=== PATIENT | female | born 1960 | race Caucasian/White ===

== ENCOUNTER 2016-10-02 04:28 | Emergency (ER) | payer SELFPAY ==
--- NOTE | 2016-10-02 06:20 | DIAGNOSTIC IMAGING REPORT ---
PROCEDURE: XR LUMBAR SPINE 2 OR 3 VIEWS INDICATION: LOWER EXTERMITY NUMBNESS TECHNIQUE: Three views. COMPARISON: None. FINDINGS: Normal alignment without fracture. Osteopenia. Mild degenerative changes and levoscoliosis. Mild atherosclerosis of the aorta. IMPRESSION: 1. Mild degenerative changes and levoscoliosis 2. Osteopenia
--- NOTE | 2016-10-02 09:16 | ED ORDER SUMMARY ---
..... Patient: SHEREE SANTAMARIA OrderSheet [facility] VisitID: [id number] [place] [address] 56y, F Registration Date/Time: 10/02/2016 ORDER SHEET Weight: 63.5 kg (stated) Allergies: No Known Drug Allergy GENERAL ORDERS: Lumbar Spine 2 or 3V Urgent (05:02 10/02/2016 Monie Sexton) (Ack 5:12 Davidna) (6:03 RCollier R.N.) CBC w Diff Urgent (05:02 10/02/2016 Monie Sexton) (Ack 5:13 Sevtlana) (5:27 DDavis R.N.) CMP Urgent (05:02 10/02/2016 Monie Sexton) (Ack 5:13 Davidna) (5:27 DDavis R.N.) UA-Culture if indicated Urgent (05:02 10/02/2016 Monie Sexton) (Ack 5:13 Svetlana) (5:27 DDavis R.N.) CPK Urgent (05:02 10/02/2016 Monie Sexton) (Ack 5:13 Davidna) (5:27 DDavis R.N.) Type & Cross (severe anemia) (compatability) Urgent (05:35 10/02/2016 Monie Sexton) (5:36 DDavis R.N.) EKG - ER Stat (05:36 10/02/2016 Monie Sexton) (Ack 5:47 Donekimana) (5:47 CHategekimana) Troponin-I Urgent (05:51 10/02/2016 Monie Sexton) (Ack 6:00 Donekimana) (6:22 DDavis R.N.) Transfuse PRBCs (2 units) (07:07 10/02/2016 DDavis R.N. verbal order read back to Monie Sexton) (Ack 7:08 DDavis R.N.) (7:33 Maida R.N.) Order received at 0536 CBC wo Diff Urgent (15:37 10/02/2016 Maida R.NMars verbal order read back to Anders Sexton) (Ack 15:43 IJurca ER Tech1) (16:04 Maida R.N.) Troponin-I Urgent (21:13 10/02/2016 Anders Sexton) (Ack 21:26 CHagerty ER Safety Representative) (21:38 Kendra R.N.) Hgb/Hct Urgent (21:18 10/02/2016 EcoDomuserty ER Safety Representative verbal order read back to Monie Sexton) (Ack 21:26 CHagerty ER Safety Representative) (21:38 DDke R.N.) EKG - ER Repeat Stat (23:07 10/02/2016 Anders Sexton) (23:17 EcoDomuserty ER Safety Representative) MEDICATION ORDERS: Tylenol PO 1,000 mg (NOW) (07:44 10/02/2016 Maida Augustin.NMars verbal order read back to Monie Sexton) (7:45 Maida R.N.) given for inc in temp during blood products IV FLUIDS: Toradol IV 30 mg (NOW) (05:02 10/02/2016 Monie Sexton) (5:30 DDavis R.N.) IV Saline Lock (05:02 10/02/2016 Monie Sexton) (5:30 DDarlettes R.N.) Protonix IVP 80mg 80 mg (Mix in NS 20ml over 4min) (05:36 10/02/2016 Monie Sexton) (5:49 DDarlettes R.N.) Morphine IV 4 mg (HIGH ALERT MEDICATION, NOW) (06:08 10/02/2016 Monei Sexton) (6:23 DDarlettes R.N.) Dilaudid IV 1 mg (HIGH ALERT MEDICATION, NOW) (06:29 10/02/2016 Monie Sexton) (6:37 Lucass R.N.) Dilaudid IV 1 mg (HIGH ALERT MEDICATION, NOW) (15:37 10/02/2016 Maida R.NMars verbal order read back to Monie Sexton) (16:04 Maida R.N.) per Dr Ashwini SERRANO Protonix IVP 80mg 80 mg (Mix in NS 20ml over 4min) (21:57 10/02/2016 Anders Sexton) (Ack 23:01 CBxander R.N.) (23:07 CBxander R.N.) Dilaudid IV 1 mg (NOW) (23:36 10/02/2016 Annette SERRANO) (23:40 Samantha R.N.) (Cancelled: Other0:15 Annette SERRANO) Dilaudid IV 0.5 mg (NOW) (00:15 10/03/2016 Annette SERRANO) (0:24 Samantha R.N.) ORDER SHEET NOTES: [Electronically signed by Yuniel Ward R.N. (01:04 10/03/2016)] [Electronically signed by Rosalio Douglass Dr. (08:35 10/04/2016)] [Electronically locked/signed by Yuniel Ward R.N. (01:04 10/03/2016)]
--- NOTE | 2016-10-02 09:16 | ED CLINICAL REPORT ---
Clinical Report - Physicians/Mid Levels [facility] [address] [place] [address] 10/02/2016 4:32 [facility]: [id number] Time Seen: 04:41; initial patient contact. Arrived- By private vehicle. Historian- patient. HISTORY OF PRESENT ILLNESS Chief Complaint: Injury to right and left leg. The injury happened about 3 years ago. Injury secondary to other mechansim (unknown). (unknown). Patient is experiencing moderate pain. Patient denies injury to the head or neck. REVIEW OF SYSTEMS The patient complains of pain on weight bearing. She has had numbness. No swelling, skin laceration, chest pain, abdominal pain or back pain. No head injury. She has had calf pain. Denies urinary incontinence or urinary retention. All systems otherwise negative, except as recorded above. PAST HISTORY Negative. Problems: no known problems. Medications: Aspirin Oral. SOCIAL HISTORY Current every day smoker. Occasional alcohol use. History of drug use: marijuana. ADDITIONAL NOTES The nursing notes have been reviewed. PHYSICAL EXAM Vital Signs: 10/02/2016 04:46 BP: 160/60. HR: 115. RR: 24. O2 saturation: 99%. Temp: 98.3 F. Pain level now: 10/10. Have been reviewed. Hypertensive. Tachycardic. Tachypneic. Temperature normal. Oxygen saturation normal. Appearance: Alert. Oriented X3. No acute distress. Eyes: Pale conjunctivae. ENT: Pharynx normal. CVS: Tachycardia. Absent right and left posterior tibial pulse and right and left dorsalis pedis pulse. Heart sounds normal. (LONNIE right 0.28, LONNIE left 0.47). Respiratory: No respiratory distress. Breath sounds normal. Abdomen: Soft and nontender. Bowel sounds normal. No mass. Back: Normal inspection. No tenderness. ROM normal. : Normal external exam. Rectal: Strongly heme-positive stool; blood present in the stool; stools are dark colored; hemoccult quality improvement coordinator check passed. (POC test reference range: negative). Dark black stool. Rectal exam nontender. (Female JUAN M Krishnan present for exam). Skin: Moderate pallor. Neuro, Vascular and Tendons: Right dorsalis pedis and right posterior tibial pulse deficit. Left dorsalis pedis and left posterior tibial pulse deficit. Decreased light touch sensation right lower extremity and left lower extremity. No weakness. Gait: Gait not tested due to pain. Neuro: Oriented X 3. No motor deficit. LABS, X-RAYS, AND EKG EKG: EKG time: (0543). Tachycardia (ventricular rate 106). Sinus tachycardia. Normal P waves. Normal KAREN. Normal QRS complex. Normal axis. Moderate ST depression in lead V4, V5 and V6- consistent with ischemia. Prolonged QTc (486). Prior EKG unavailable. The study has been interpreted contemporaneously by me. The study has been independently viewed by me. The EKG appears to be a good tracing. I agree with and confirm the computer reading of the EKG. Interpretation time: 05. LS-Spine X-rays: (Mild DJD and levoscoliosis, otherwise nl.). Views: AP and lateral. Technique: good. The X-rays were independently viewed by me and interpreted contemporaneously by me. Prior films were not available for comparison. Laboratory Tests: UA-Culture if indicated: (TASHIA: 10/02/2016 05:32) ( MsgRcvd 10/02/2016 06:11) Final results Test Result Flag Units (Reference) URINE COLOR YELLOW URINE APPEARANCE CLEAR URINE GLUCOSE NEGATIVE (NEGATIVE) URINE BILIRUBIN NEGATIVE (NEGATIVE) URINE KETONE NEGATIVE (NEGATIVE) URINE SPECIFIC GRAVITY 1.025 (1.010-1.030) URINE PH 6.0 (5.0-8.0) URINE PROTEIN NEGATIVE (NEGATIVE) URINE UROBILINOGEN 0.2 EU/dL (0.2-1.0) URINE NITRITE NEGATIVE (NEGATIVE) URINE BLOOD NEGATIVE (NEGATIVE) URINE LEUK ESTERASE NEGATIVE (NEGATIVE) URINE RBC 0-1 rbc/hpf (0-1) URINE WBC 0-1 wbc/hpf (0-1) URINE EPITHELIAL CELLS 0-1 EPI/hpf (0-5) URINE BACTERIA MODERATE (2+ TO 3+) (NONE SEEN) URINE COMMENT CULTURE INDICATED MANY YEASTURINE CULTURES ARE SET-UP BASED ON THE FOLLOWING CRITERIA:POSITIVE NITRITEPOSITIVE LEUKOCYTE ESTERASEGREATER THAN 10 WHITE BLOOD CELLSMODERATE (2+) OR GREATER BACTERIA CBC w Diff: (TASHIA: 10/02/2016 05:08) ( [facility] [place] 10/02/2016 05:21) Final results Test Result Flag Units (Reference) WHITE BLOOD COUNT 14.2 H K/uL (4.5-11.5) RED BLOOD COUNT 2.41 L M/uL (4.00-5.20) HEMOGLOBIN 4.6 *L gm/dL (12.0-16.0) CRITICAL RESULTS CALLEDCalled to JULIEN LOPEZ RN 10/02/16 0519Were 2 patient identifiers used? YWas the result read back? Y HEMATOCRIT 15.9 *L % (36.0-46.0) CRITICAL RESULTS CALLEDCalled to JULIEN LOPEZ RN 10/02/16 0520Were 2 patient identifiers used? YWas the result read back? Y MEAN CELL VOLUME 66 L fL (80-100) MEAN CORPUSCULAR HGB 19 L pg (26-34) MEAN CORPUSCULAR HGB CONC 29 L g/dL (31-37) RED CELL DISTRIBUTION WIDTH 20.9 H % (11.6-14.8) PLATELET COUNT 238 K/uL (150-400) NEUTROPHIL % 82.8 H % (50-75) LYMPH % 11.7 L % (25-40) MONO % 4.9 % (3-14) EOSINOPHIL % 0.2 % (0-4) BASOPHIL % 0.4 % (0-2) CMP: (TASHIA: 10/02/2016 05:08) ( [facility] [place] 10/02/2016 05:33) Final results Test Result Flag Units (Reference) GLUCOSE 104 mg/dL (70-110) BUN 15 mg/dL (7-18) CREATININE 0.8 mg/dL (0.6-1.3) Estimated GFR >60 mL/min Estimated GFR- >60 mL/min Note: Persistent reduction over 3 months in eGFR<60 mL/min/1.73 m2 defines CKD. Patients with eGFR values>=60 mL/min/1.73 m2 may also have CKD if evidence ofpersistent proteinuria. Additional information may be foundat [email or web address]. SODIUM 140 mmol/L (136-145) POTASSIUM 3.7 mmol/L (3.5-5.1) CHLORIDE 106 mmol/L (98-107) CARBON DIOXIDE 20 L mmol/L (21-32) CALCIUM 7.5 L mg/dL (8.5-10.1) TOTAL PROTEIN 6.2 L g/dL (6.4-8.2) ALBUMIN 3.1 L g/dL (3.3-5.0) BILIRUBIN, TOTAL 0.2 mg/dL (0.0-1.0) ALKALINE PHOSPHATASE 113 U/L (46-116) AST (SGOT) 21 U/L (15-37) ALT (SGPT) 23 U/L (12-78) CPK 84 U/L (24-260) Type & Cross: (TASHIA: 10/02/2016 05:08) ( MsgRcvd 10/02/2016 06:05) IP Test Result Flag Units (Reference) LEUKOREDUCED PACKED CELLS [id number] OP PC ISSUED 10/02/16602 [id number] OP PC XM COMPATIBLE PATIENT BLOOD TYPE O Positive Above is a corrected result. Previously reported on ( MsgRcvd 10/02/2016 05:56) as: PATIENT BLOOD TYPE O Positive ANTIBODY SCREEN NEGATIVE Above is a corrected result. Previously reported on ( MsgRcvd 10/02/2016 05:56) as: ANTIBODY SCREEN NEGATIVE . PROGRESS AND PROCEDURES Critical care performed (85 minutes). Time includes: direct patient care, patient reassessment, coordination of patient care, interpretation of data (laboratory data and pulse oximetry), review of patient's medical records, medical consultation, family consultation regarding treatment decisions and documentation of patient care. The patient required critical care due to the acute impairment of vital organ systems (cardiovascular and hematologic) and a high probability of life threatening deterioration. Multiple emergent interventions were required to prevent life threatening deterioration. Discussed case with on-call health care provider, (Dr. Antonino MOODY at [facility], agreed on consulting for scope, deferred admit to hospitalist call [id number]). Discussed case with hospitalist, (call returned 09:10 Dr. Powers Hospitalist at [facility], will accept pt.). Consult obtained from cardiology. call returned 07:20 Dr. Muñiz at [facility], deferred to [address] [place] [address] where there is cardiology and vascular. Disposition: Benefits, risks and alternatives to transfer explained to patient. Transferred to [facility]. Condition: stable. CLINICAL IMPRESSION Occult and minor GI bleed with melena. 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 Abnormal EKG: depressed ST segments. Severe chronic iron deficiency anemia from chronic blood loss. (Electronically signed by Rosalio Douglass Dr. 10/04/2016 8:35) Addenda for SHEREE SANTMAARIA VisitID: [id number] Date: 10/02/2016 10/02/2016 22:48 Addendum placed in patient chart. I was the physician on after the patient's disposition was decided. Patient with GI bleed, indeterminate trop, anemia, and arterial insufficiency to the lower extremities. Patient 's was to be transfered to [facility]. From the notes, the doctor had spoken to cardilogy, GI, and hospitalist. During patient's stay here in the ED, patient was noted to be resting in bed and in no acute distress. Multiple calls were placed to [facility]. Were informed that we were waiting for a bed. Prior to my shift ending, patient was noted to have no bed placement. I have tried calling personally. No improved bed status. Did try to speak to the ED for possible ED to ED transfer which was uneventful. Understand the ED's point of view about bed status and no point in transfering if there are no beds. Did speak to [facility] however the production generalist doc there felt the patient required an ICU level of bed and that was not available. [facility] did not have beds either. We also discussed admit our hospital but with the indetermanent trop, and no cath ability, patient could not be managed here. Because the patient was still in the ED. repeat meds given and trop drawn to trend. Patient with H/H that seemd to have stayed about the same after the H/H the followed her transfusion. Patient with increased troponin however. This new information was relayed to [facility]. We are still awaiting status on the possible bed. Time now is 10:48 pm (Electronically signed by Kavon Maradiaga Dr. - 10/02/2016 22:48) 10/02/2016 23:37 1 mg of dilaudid written for return of leg pain. (Electronically signed by Madi Medley MD - 10/02/2016 23:37)
--- NOTE | 2016-10-02 09:16 | ED ORDER SUMMARY ---
..... Patient: SHEREE SANTAMARIA OrderSheet [facility] VisitID: [id number] [place] [address] 56y, F Registration Date/Time: 10/02/2016 ORDER SHEET Weight: 63.5 kg (stated) Allergies: No Known Drug Allergy GENERAL ORDERS: Lumbar Spine 2 or 3V Urgent (05:02 10/02/2016 Monie Sexton) (Ack 5:12 Davidna) (6:03 RCollier R.N.) CBC w Diff Urgent (05:02 10/02/2016 Monie Sexton) (Ack 5:13 Svetlana) (5:27 DDavis R.N.) CMP Urgent (05:02 10/02/2016 Monie Sexton) (Ack 5:13 Davidna) (5:27 DDavis R.N.) UA-Culture if indicated Urgent (05:02 10/02/2016 Monie Sexton) (Ack 5:13 Svetlana) (5:27 DDavis R.N.) CPK Urgent (05:02 10/02/2016 Monie Sexton) (Ack 5:13 Davidna) (5:27 DDavis R.N.) Type & Cross (severe anemia) (compatability) Urgent (05:35 10/02/2016 Monie Sexton) (5:36 DDavis R.N.) EKG - ER Stat (05:36 10/02/2016 Moine Sexton) (Ack 5:47 Donekimana) (5:47 CHategekimana) Troponin-I Urgent (05:51 10/02/2016 Monie Sexton) (Ack 6:00 Donekimana) (6:22 DDavis R.N.) Transfuse PRBCs (2 units) (07:07 10/02/2016 DDavis R.N. verbal order read back to Monie Sexton) (Ack 7:08 DDavis R.N.) (7:33 Maida R.N.) Order received at 0536 CBC wo Diff Urgent (15:37 10/02/2016 Maida R.NMars verbal order read back to Anders Sexton) (Ack 15:43 IJurca ER Tech1) (16:04 Maida R.N.) Troponin-I Urgent (21:13 10/02/2016 Anders Sexton) (Ack 21:26 CHagerty ER Machine Clerical Verifier) (21:38 Kendra R.N.) Hgb/Hct Urgent (21:18 10/02/2016 Wizzgoerty ER Machine Clerical Verifier verbal order read back to Monie Sexton) (Ack 21:26 CHagerty ER Machine Clerical Verifier) (21:38 DDke R.N.) EKG - ER Repeat Stat (23:07 10/02/2016 Anders Sexton) (23:17 Wizzgoerty ER Machine Clerical Verifier) MEDICATION ORDERS: Tylenol PO 1,000 mg (NOW) (07:44 10/02/2016 Maida Augustin.NMars verbal order read back to Monie Setxon) (7:45 Maida R.N.) given for inc in temp during blood products IV FLUIDS: Toradol IV 30 mg (NOW) (05:02 10/02/2016 Monie Sexton) (5:30 DDavis R.N.) IV Saline Lock (05:02 10/02/2016 Monie Sexton) (5:30 DDarlettes R.N.) Protonix IVP 80mg 80 mg (Mix in NS 20ml over 4min) (05:36 10/02/2016 Monie Sexton) (5:49 DDarlettes R.N.) Morphine IV 4 mg (HIGH ALERT MEDICATION, NOW) (06:08 10/02/2016 Monie Sexton) (6:23 DDarlettes R.N.) Dilaudid IV 1 mg (HIGH ALERT MEDICATION, NOW) (06:29 10/02/2016 Monie Sexton) (6:37 Lucass R.N.) Dilaudid IV 1 mg (HIGH ALERT MEDICATION, NOW) (15:37 10/02/2016 Maida R.NMars verbal order read back to Monie Sexton) (16:04 Maida R.N.) per Dr Ashwini SERRANO Protonix IVP 80mg 80 mg (Mix in NS 20ml over 4min) (21:57 10/02/2016 Anders Sexton) (Ack 23:01 CBxander R.N.) (23:07 CBxander R.N.) Dilaudid IV 1 mg (NOW) (23:36 10/02/2016 Annette SERRANO) (23:40 Samantha R.N.) (Cancelled: Other0:15 Annette SERRANO) Dilaudid IV 0.5 mg (NOW) (00:15 10/03/2016 Annette SERRANO) (0:24 Samantha R.N.) ORDER SHEET NOTES: [Electronically signed by Yuniel Ward R.N. (01:04 10/03/2016)] [Electronically signed by Rosalio Douglass Dr. (08:35 10/04/2016)] [Electronically locked/signed by Yuniel Ward R.N. (01:04 10/03/2016)]
--- NOTE | 2016-10-02 09:16 | ED CLINICAL REPORT ---
Clinical Report - Physicians/Mid Levels [facility] [address] [place] [address] 10/02/2016 4:32 [id number] Time Seen: 04:41; initial patient contact. Arrived- By private vehicle. Historian- patient. HISTORY OF PRESENT ILLNESS Chief Complaint: Injury to right and left leg. The injury happened about 3 years ago. Injury secondary to other mechansim (unknown). (unknown). Patient is experiencing moderate pain. Patient denies injury to the head or neck. REVIEW OF SYSTEMS The patient complains of pain on weight bearing. She has had numbness. No swelling, skin laceration, chest pain, abdominal pain or back pain. No head injury. She has had calf pain. Denies urinary incontinence or urinary retention. All systems otherwise negative, except as recorded above. PAST HISTORY Negative. Problems: no known problems. Medications: Aspirin Oral. SOCIAL HISTORY Current every day smoker. Occasional alcohol use. History of drug use: marijuana. ADDITIONAL NOTES The nursing notes have been reviewed. PHYSICAL EXAM Vital Signs: 10/02/2016 04:46 BP: 160/60. HR: 115. RR: 24. O2 saturation: 99%. Temp: 98.3 F. Pain level now: 10/10. Have been reviewed. Hypertensive. Tachycardic. Tachypneic. Temperature normal. Oxygen saturation normal. Appearance: Alert. Oriented X3. No acute distress. Eyes: Pale conjunctivae. ENT: Pharynx normal. CVS: Tachycardia. Absent right and left posterior tibial pulse and right and left dorsalis pedis pulse. Heart sounds normal. (LONNIE right 0.28, LONNIE left 0.47). Respiratory: No respiratory distress. Breath sounds normal. Abdomen: Soft and nontender. Bowel sounds normal. No mass. Back: Normal inspection. No tenderness. ROM normal. : Normal external exam. Rectal: Strongly heme-positive stool; blood present in the stool; stools are dark colored; hemoccult senior quality control technician check passed. (POC test reference range: negative). Dark black stool. Rectal exam nontender. (Female JUAN M Krishnan present for exam). Skin: Moderate pallor. Neuro, Vascular and Tendons: Right dorsalis pedis and right posterior tibial pulse deficit. Left dorsalis pedis and left posterior tibial pulse deficit. Decreased light touch sensation right lower extremity and left lower extremity. No weakness. Gait: Gait not tested due to pain. Neuro: Oriented X 3. No motor deficit. LABS, X-RAYS, AND EKG EKG: EKG time: (0543). Tachycardia (ventricular rate 106). Sinus tachycardia. Normal P waves. Normal KAREN. Normal QRS complex. Normal axis. Moderate ST depression in lead V4, V5 and V6- consistent with ischemia. Prolonged QTc (486). Prior EKG unavailable. The study has been interpreted contemporaneously by me. The study has been independently viewed by me. The EKG appears to be a good tracing. I agree with and confirm the computer reading of the EKG. Interpretation time: 05. LS-Spine X-rays: (Mild DJD and levoscoliosis, otherwise nl.). Views: AP and lateral. Technique: good. The X-rays were independently viewed by me and interpreted contemporaneously by me. Prior films were not available for comparison. Laboratory Tests: UA-Culture if indicated: (TASHIA: 10/02/2016 05:32) ( MsgRcvd 10/02/2016 06:11) Final results Test Result Flag Units (Reference) URINE COLOR YELLOW URINE APPEARANCE CLEAR URINE GLUCOSE NEGATIVE (NEGATIVE) URINE BILIRUBIN NEGATIVE (NEGATIVE) URINE KETONE NEGATIVE (NEGATIVE) URINE SPECIFIC GRAVITY 1.025 (1.010-1.030) URINE PH 6.0 (5.0-8.0) URINE PROTEIN NEGATIVE (NEGATIVE) URINE UROBILINOGEN 0.2 EU/dL (0.2-1.0) URINE NITRITE NEGATIVE (NEGATIVE) URINE BLOOD NEGATIVE (NEGATIVE) URINE LEUK ESTERASE NEGATIVE (NEGATIVE) URINE RBC 0-1 rbc/hpf (0-1) URINE WBC 0-1 wbc/hpf (0-1) URINE EPITHELIAL CELLS 0-1 EPI/hpf (0-5) URINE BACTERIA MODERATE (2+ TO 3+) (NONE SEEN) URINE COMMENT CULTURE INDICATED MANY YEASTURINE CULTURES ARE SET-UP BASED ON THE FOLLOWING CRITERIA:POSITIVE NITRITEPOSITIVE LEUKOCYTE ESTERASEGREATER THAN 10 WHITE BLOOD CELLSMODERATE (2+) OR GREATER BACTERIA CBC w Diff: (TASHIA: 10/02/2016 05:08) ( [facility] 10/02/2016 05:21) Final results Test Result Flag Units (Reference) WHITE BLOOD COUNT 14.2 H K/uL (4.5-11.5) RED BLOOD COUNT 2.41 L M/uL (4.00-5.20) HEMOGLOBIN 4.6 *L gm/dL (12.0-16.0) CRITICAL RESULTS CALLEDCalled to JULIEN LOPEZ RN 10/02/16 0519Were 2 patient identifiers used? YWas the result read back? Y HEMATOCRIT 15.9 *L % (36.0-46.0) CRITICAL RESULTS CALLEDCalled to JULIEN LOPEZ RN 10/02/16 0520Were 2 patient identifiers used? YWas the result read back? Y MEAN CELL VOLUME 66 L fL (80-100) MEAN CORPUSCULAR HGB 19 L pg (26-34) MEAN CORPUSCULAR HGB CONC 29 L g/dL (31-37) RED CELL DISTRIBUTION WIDTH 20.9 H % (11.6-14.8) PLATELET COUNT 238 K/uL (150-400) NEUTROPHIL % 82.8 H % (50-75) LYMPH % 11.7 L % (25-40) MONO % 4.9 % (3-14) EOSINOPHIL % 0.2 % (0-4) BASOPHIL % 0.4 % (0-2) CMP: (TASHIA: 10/02/2016 05:08) ( [facility] 10/02/2016 05:33) Final results Test Result Flag Units (Reference) GLUCOSE 104 mg/dL (70-110) BUN 15 mg/dL (7-18) CREATININE 0.8 mg/dL (0.6-1.3) Estimated GFR >60 mL/min Estimated GFR- >60 mL/min Note: Persistent reduction over 3 months in eGFR<60 mL/min/1.73 m2 defines CKD. Patients with eGFR values>=60 mL/min/1.73 m2 may also have CKD if evidence ofpersistent proteinuria. Additional information may be foundat [email or web address]. SODIUM 140 mmol/L (136-145) POTASSIUM 3.7 mmol/L (3.5-5.1) CHLORIDE 106 mmol/L (98-107) CARBON DIOXIDE 20 L mmol/L (21-32) CALCIUM 7.5 L mg/dL (8.5-10.1) TOTAL PROTEIN 6.2 L g/dL (6.4-8.2) ALBUMIN 3.1 L g/dL (3.3-5.0) BILIRUBIN, TOTAL 0.2 mg/dL (0.0-1.0) ALKALINE PHOSPHATASE 113 U/L (46-116) AST (SGOT) 21 U/L (15-37) ALT (SGPT) 23 U/L (12-78) CPK 84 U/L (24-260) Type & Cross: (TASHIA: 10/02/2016 05:08) ( MsgRcvd 10/02/2016 06:05) IP Test Result Flag Units (Reference) LEUKOREDUCED PACKED CELLS [id number] OP PC ISSUED 10/02/16602 [id number] OP PC XM COMPATIBLE PATIENT BLOOD TYPE O Positive Above is a corrected result. Previously reported on ( MsgRcvd 10/02/2016 05:56) as: PATIENT BLOOD TYPE O Positive ANTIBODY SCREEN NEGATIVE Above is a corrected result. Previously reported on ( MsgRcvd 10/02/2016 05:56) as: ANTIBODY SCREEN NEGATIVE . PROGRESS AND PROCEDURES Critical care performed (85 minutes). Time includes: direct patient care, patient reassessment, coordination of patient care, interpretation of data (laboratory data and pulse oximetry), review of patient's medical records, medical consultation, family consultation regarding treatment decisions and documentation of patient care. The patient required critical care due to the acute impairment of vital organ systems (cardiovascular and hematologic) and a high probability of life threatening deterioration. Multiple emergent interventions were required to prevent life threatening deterioration. Discussed case with on-call health care provider, (Dr. Antonino MOODY at [facility], agreed on consulting for scope, deferred admit to hospitalist call [id number]). Discussed case with hospitalist, (call returned 09:10 Dr. Powers Hospitalist at [facility], will accept pt.). Consult obtained from cardiology. call returned 07:20 Dr. Muñiz at [facility], deferred to [address] [place] [address] where there is cardiology and vascular. Disposition: Benefits, risks and alternatives to transfer explained to patient. Transferred to [facility]. Condition: stable. CLINICAL IMPRESSION Occult and minor GI bleed with melena. 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 Abnormal EKG: depressed ST segments. Severe chronic iron deficiency anemia from chronic blood loss. (Electronically signed by Rosalio Douglass Dr. 10/04/2016 8:35) Addenda for SHEREE SANTAMARIA VisitID: [id number] Date: 10/02/2016 10/02/2016 22:48 Addendum placed in patient chart. I was the physician on after the patient's disposition was decided. Patient with GI bleed, indeterminate trop, anemia, and arterial insufficiency to the lower extremities. Patient 's was to be transfered to [facility]. From the notes, the doctor had spoken to [facility]ilogy, GI, and hospitalist. During patient's stay here in the ED, patient was noted to be resting in bed and in no acute distress. Multiple calls were placed to [facility]. Were informed that we were waiting for a bed. Prior to my shift ending, patient was noted to have no bed placement. I have tried calling personally. No improved bed status. Did try to speak to the ED for possible ED to ED transfer which was uneventful. Understand the ED's point of view about bed status and no point in transfering if there are no beds. Did speak to [facility] however the client application support engineer doc there felt the patient required an ICU level of bed and that was not available. [facility] did not have beds either. We also discussed admit our hospital but with the indetermanent trop, and no cath ability, patient could not be managed here. Because the patient was still in the ED. repeat meds given and trop drawn to trend. Patient with H/H that seemd to have stayed about the same after the H/H the followed her transfusion. Patient with increased troponin however. This new information was relayed to [facility]. We are still awaiting status on the possible bed. Time now is 10:48 pm (Electronically signed by Kavon Maradiaga Dr. - 10/02/2016 22:48) 10/02/2016 23:37 1 mg of dilaudid written for return of leg pain. (Electronically signed by Madi Medley MD - 10/02/2016 23:37)
--- NOTE | 2016-10-02 09:16 | ED NURSING NOTES ---
Clinical Report - Nurs[facility] [address] [place] [address] 10/02/2016 4:32 [id number] Triage time 04:47. Acuity: LEVEL 4. Chief Complaint: RIGHT LOWER EXTREMITY NUMBNESS. Location of symptoms- (weakness). LEFT LOWER EXTREMITY NUMBNESS. Location of symptoms- (weakness). Alert. JEREMI COMA SCORE: [place] Coma Scale: 15- eyes open spontaneously (4); best verbal response- oriented x 4 (5); best motor response- obeys commands (6). --04:53 Yuniel Ward R.N. 04:46 10/02/16. BP: 160/60. HR: 115. RR: 24. O2 saturation: 99%. Temp: 98.3 F. Pain level now: 02/24. --04:53 Yuniel Ward R.N. Weight: 63.5 kg stated. Height/Length: 63 inches Per Patient. BMI: 24.8. --04:47 Yuniel Ward R.N. Medications Aspirin Oral. --04:48 Yuniel Ward R.N. Allergies No Known Drug Allergy. --01:04 Yuniel Ward R.N. History Arrived by private vehicle. Historian: patient. Accompanied by family. This occurred (3 years ago). ( increased "Thursday"). SOCIAL HX: Heavy tobacco smoker (cigarette)- 1 pack per day. Occasional alcohol use. History of occasional drug use: marijuana. ( Denies SI/HI, states that she feels safe at home.). FALL RISK ASSESSMENT: Fall risk assessment completed. No fall risk identified. NUTRITIONAL RISK ASSESSMENT: The nutritional risk assessment revealed no deficiencies. FUNCTIONAL ASSESSMENT: Functional assessment: no impairments noted. LEARNING NEEDS ASSESSMENT: The learning needs assessment revealed no barriers. --04:53 Yuniel Ward R.N. PROBLEMS: no known problems. ADDITIONAL SURGERIES: Tubal Ligation. --04:48 Yuniel Ward R.N. Interventions ID band on patient. To treatment room. --04:53 Yuniel Ward R.N. PHYSICAL ASSESSMENT To room via wheelchair. GENERAL / NEURO / PSYCH: Oriented X 4. Alert. Appears in pain and anxious. Does not appear in distress. She has had intermittent weakness. She has had intermittent numbness. EXTREMITIES: No lower extremity edema. No limited ROM present or extremity erythema. No increased warmth on the extremities. SKIN: No extremity wound. Skin intact. Skin is dry. Skin is cool. --04:55 Yuniel Ward R.N. CVS: Cardiac murmur(s) present (murmur heard over jugular areas bilaterally). ( unable to manually palpate pedal pulses. lung sounds clear). --04:59 Yuniel Ward R.N. GENERAL / NEURO / PSYCH: ( Patient states that the diluadid was helpful for her leg pain). Does not appear anxious. --07:01 Yuniel Ward R.N. GENERAL / NEURO / PSYCH: ( Patient appears relaxed). --07:01 Yuniel Ward R.N. 07:05 10/02/16. BP: 155/60. HR: 96. O2 saturation: 98% on nasal cannula at 2 liters/minute. --07:05 Yuniel Ward R.N. GENERAL / NEURO / PSYCH: Oriented X 4. ( Patient resting in bed). Does not appear in pain or distress or anxious. SKIN: Skin intact. Skin is warm and dry. --00:29 Yuniel Ward R.N. NURSING PROGRESS NOTES Patient gowned. Reassurance given. Two patient identifiers checked. Call light placed in reach. Side rails up x 1. Bed placed in lowest position. Brakes of bed on. Patient ready for evaluation- chart flagged. Patient waiting for evaluation. --04:55 Yuniel Ward R.N. ( Unable to palpate or doppler pedal pulses, dr. douglass notified.). --05:27 Yuniel Ward R.N. 05:20 10/02/2016 Site #1 started via IV in the right antecubital space with an 20g angiocath. Blood drawn: rainbow set. Labeled in the presence of the patient and sent to the lab. Saline lock flushed with 10 mL saline. --05:30 Yuniel Ward R.N. 05:25 10/02/2016 Toradol IVP 30 mg given over 1 minute(s) via site #1. Allergies verified and confirmed 5 rights. IV patency established. IV site checked: no pain, redness, or swelling. IV flushed thoroughly pre- and post-medication administration. --05:30 Yuniel Ward R.N. ( Dr. Douglass with patient.). --05:32 uYniel Ward R.N. Hemoccult test positive. inventory control coordinator check passed. (POC test reference range: negative). --05:32 Yuniel Ward R.N. ( Critical values of Hgb 4.6 and Hct 15.[address] douglass at time lab called, received and reported by JUAN M Brar.). --05:34 Yuniel Ward R.N. ( lean manager performing EKG). --05:37 Yuniel Ward R.N. EKG time: (0542 AM). EKG was ordered, performed by a tech and shown to the ED physician. --05:48 Junie Corado 05:43 10/02/2016 PROTONIX (Pantoprazole Sodium) IVP 80 mg given over 4 minute(s) via site #1. Allergies verified and confirmed 5 rights. IV patency established. IV site checked: no pain, redness, or swelling. IV flushed thoroughly pre- and post-medication administration. IVP given by RN (in 20ml NS). --05:49 Yuniel Ward R.N. Patient transported to radiology by stretcher with tech. --05:55 Daniella Taylor R.N. ( Patient taken to radiology with Rolan home appliance technician). --05:57 Yuniel Ward R.N. Patient returned from radiology by stretcher with tech. --06:04 Daniella Taylor R.N. ( Pt c/o increased pain in legs. EDMD notified.). --06:04 Daniella Taylor R.N. 06:13 10/02/2016 Morphine IVP 4 mg given over 2 minute(s) via site #1. Allergies verified, confirmed 5 rights and sedative warning given to the patient and patient's family. IV patency established. IV site checked: no pain, redness, or swelling. IV flushed thoroughly pre- and post-medication administration. IVP given by RN. --06:23 Yuniel Ward R.N. BLOOD PRODUCT STARTED: consent signed, ID band checked and blood product verified to order and patient's blood band by 2 staff members. #1 unit PRBC via IV pump (75 mL/hr). See transfusion record. ( Blood started at 0615). --06:24 Yuniel Ward R.N. 06:30 10/02/16. BP: 187/57. HR: 121. O2 saturation: 100% on nasal cannula at 2 liters/minute. Temp: 98.6 F (oral). Pain level now: 02/24. --06:35 Yuniel Ward R.N. 06:33 10/02/2016 Dilaudid (HYDROmorphone HCl PF) IVP 1 mg given over 2 minute(s) via site #1. Allergies verified, confirmed 5 rights and sedative warning given to the patient and patient's family. IV patency established. IV site checked: no pain, redness, or swelling. IV flushed thoroughly pre- and post-medication administration. IVP given by RN. --06:37 Yuniel Ward R.N. <<STRICKEN ENTRY-- ( rate of blood increased to 200 ml/hr). --06:47 Yuniel Ward R.N. --END STRIKE>> Correction --06:47 Yuniel Ward R.N. ( 0630: rate of blood increased to 200 ml/hr). --06:48 Yuniel Ward R.N. 06:49 10/02/16. BP: 178/47 taken on the right arm. HR: 102. O2 saturation: 100% on nasal cannula at 2 liters/minute. Pain level now: 10/25. --06:50 Yuniel Ward R.N. 06:50 10/02/16. BP: 174/50 taken on the left arm. HR: 101. --06:50 Yuniel Ward R.N. <<STRICKEN ENTRY-- 06:50 10/02/16. BP: 51/35. Additional comments: left leg. --06:51 Yuniel Ward R.N. --END STRIKE>> Wrong Value. --06:51 Yuniel Ward R.N. 06:51 10/02/16. BP: 83/54. Additional comments: left leg. --06:51 Yuniel Ward R.N. 06:51 10/02/16. BP: 51/35. Additional comments: right leg. --06:51 Yuniel Ward R.N. <<STRICKEN ENTRY-- 06:54 10/02/16. BP: 167/100. HR: 102. RR: 18. O2 saturation: 98%. Pain level now: 09/24. --06:56 Sheriff Mccormick R.N. --END STRIKE>> Charted on wrong patient. --07:00 Sheriff Mccormick R.N. Overall patient status is the same- she states feels better. ( CT done.). --06:56 Sheriff Mccormick R.N. ( report given to JUAN M Shen). --07:06 Yuniel Ward R.N. ( assumed care of pt, doppler used to obtain pedal pulses, MD notified. pt sleeping, awakens to touch, spouse at bedside, pts color pink, oral mucosa dry, has NC 2L in place, waiting to hear of accepting facility for transport out. pt placed on vibration technician). --07:23 Hermelinda Darden R.N. 07:20 10/02/16. BP: 150/49. HR: 94. RR: 19. O2 saturation: 99% on nasal cannula at 2 liters/minute. Temp: 99.2 F. ED physician notified. --07:23 Hermelinda Darden R.N. Patient identifiers checked. Call light placed in reach. Side rails up x 2. Bed placed in lowest position. Brakes of bed on. ( blood up infusing on iv pump at 200ml/hr). --07:24 Hermelinda Darden R.N. Reassessment after medication administered (temperature elevated during blood transfusion, notified with orders for a gram of tylenol). --07:35 Hermelinda Darden R.N. 07:39 10/02/2016 Tylenol (Acetaminophen) PO 1000 mg given. Allergies verified and confirmed 5 rights. --07:45 Hermelinda Darden R.N. 07:58 10/02/16. ( pt moved to room 13 in direct view of nurses station. pt sats now 100% on 3 L, pt a/o x 3, denies pain, in SR on monitor, 1st unit of blood products complete, facility tech to lab to get 2nd unit.). --08:10 Hermelinda Darden R.N. 08:10 10/02/16. BP: 148/56. HR: 81. RR: 15. O2 saturation: 100% on nasal cannula at 3 liters/minute. Temp: 98.4 F. Pain level now: 0. --08:11 Hermelinda Darden R.N. 08:44 10/02/16. BP: 159/59. HR: 84. RR: 16. O2 saturation: 100%. Temp: 98.4 F. Pain level now: 0. --08:46 Hermelinda Darden R.N. ( 2nd unit of blood up infusing on iv pump, started at 75ml/hr for first 15 minutes, pt in SR on monitor, resting quietly). --08:46 Hermelinda Darden R.N. 08:55 10/02/16. BP: 149/50. HR: 85. RR: 15. O2 saturation: 100% on nasal cannula at 3 liters/minute. Temp: 98.5 F. Pain level now: 0. --08:56 Hermelinda Darden R.N. ( 15 minute blood check, rate increased to 200ml/hr). --08:56 Hermelinda Darden R.N. ( 2nd unit of blood infusing as ordered on ivp- waiting call back from [facility] for transfer.). --09:48 Hermelinda Darden R.N. 09:55 10/02/16. BP: 153/56 (regular adult cuff) taken on the left arm, via an automated monitor, while lying. RN notified. HR: 81. RR: 10 (regular, slow and deep). O2 saturation: 100% on nasal cannula at 3 liters/minute. Temp: 98.7 F. Pain level now: 0/10. Additional comments: 1 hour Blood check . --09:57 Kelley Seymour 10:30 10/02/16. BP: 161/69. HR: 84. RR: 15. O2 saturation: 100% at 3 liters/minute. Temp: 98.2 F. Pain level now: 0/10. --10:41 Hermelinda Darden R.N. ( 2nd unit of blood complete, v/s recorded, no s/sx of reaction). --10:41 Hermelinda Darden R.N. 08:41. BLOOD PRODUCT DISCONTINUED: #1 unit. No adverse reaction noted. See transfusion record. --11:16 Hermelinda Darden R.N. 08:41. Time-out completed immediately before the procedure per protocol: verified identity of patient (name, birthdate and medical record number), procedure, availability of relevant documentation, diagnostic and imaging studies and blood products, implants, devices and/or equipment, safety precautions based on patient history or medication use and consent was obtained and reviewed; verification done by care team (nurse). (2551) BLOOD PRODUCT STARTED: consent signed, ID band checked and blood product verified to order and patient's blood band by 2 staff members. #2 unit PRBC via IV pump (started at 75ml/hr). See transfusion record. --11:18 Hermelinda Darden R.N. 10:41. BLOOD PRODUCT DISCONTINUED: #2 unit PRBC. No adverse reaction noted. See transfusion record. --11:18 Hermelinda Darden R.N. Patient waiting for transportation and admit bed and (continuing to wait on bed at [facility] where pt was accepted. LORENA Gill called and at this time they have no available beds but are expecting dispos today.). --12:08 Hermelinda Darden R.N. 12:08 10/02/16. BP: 148/70. HR: 72. RR: 15. O2 saturation: 100% on nasal cannula at 3 liters/minute. Pain level now: 07/25. --12:09 Hermelinda Darden R.N. Cardiac rhythm: normal sinus rhythm. Patient identifiers checked. Call light placed in reach. Side rails up x 2. Bed placed in lowest position. Brakes of bed on. --12:09 Hermelinda Darden R.N. Reassessment after (no reaction from blood products. pt in poc, daughter in and out of room). She has had no adverse reaction. ( pt and family updated on delay of transport reason). --12:10 Hermelinda Darden R.N. 14:17 10/02/16. BP: 141/53. HR: 78. RR: 15. O2 saturation: 100%. Pain level now: . --14:20 Hermelinda Darden R.N. ( pt in poc, family in and out, we cont to wait for return from [facility] for transfer. pt and family aware of wait. pt in SR, denies pain at this time, pt a/o x 3, moves about on [facility] independently, call light in hand,). --14:20 Hermelinda Darden R.N. ( plan is now to wait until 1600 and then call [facility] back if room is not available will send to [facility] ED). --15:19 Hermelinda Darden R.N. ( pt c/o leg pain returning, Dr Maradiaga took over for Dr Douglass, vo per Dr Maradiaga to repeat dilaudid 1mg iv). --15:39 Hermelinda Darden R.N. Cardiac rhythm: (SR). Patient identifiers checked. Call light placed in reach. Side rails up x 1. Bed placed in lowest position. Brakes of bed on. ( pts family brought her dinner, pt ate hamburger, water given to pt, up to bsc with sba to void.). --15:40 Hermelinda Daredn R.N. 15:39 10/02/16. BP: 138/50. HR: 82. RR: 17. O2 saturation: 100% on nasal cannula at 3 liters/minute. Pain level now: 09/24. --15:40 Hermelinda Darden R.N. 15:56 10/02/16. Patient ID band checked for patient name and birthdate. Blood samples drawn from the right antecubital space with Vacutainer 22g by nurse: don cameron. --17:31 Hermelinda Darden R.N. 15:59 10/02/2016 Dilaudid (HYDROmorphone HCl PF) IVP 1 mg given. via site #1. Allergies verified, confirmed 5 rights and sedative warning given to the patient. IV patency established. IV site checked: no pain, redness, or swelling. IV flushed thoroughly pre- and post-medication administration. IVP given by RN. --16:04 Hermelinda Darden R.N. ( [facility], they still have no bed, house sup at [facility] to call us when available, Dr Maradiaga notified.). --17:40 Hermelinda Darden R.N. 17:40 10/02/16. BP: 136/48. HR: 77. O2 saturation: 100%. --17:40 Hermelinda Darden R.N. Patient identifiers checked. Call light placed in reach. Side rails up x 2. Bed placed in lowest position. Brakes of bed on. --17:41 Hermelinda Darden R.N. ( family updated on H/H results and that we cont to wait on [facility] for transfer. pt sleeping, equal rise/fall of chest). --18:16 Hermelinda Darden R.N. ( care released, family home, pt sleeping, equal rise/fall of chest). --19:02 Hermelinda Darden R.N. 19:02 10/02/16. BP: 147/48. HR: 80. RR: 15. O2 saturation: 98%. --19:03 Hermelinda Darden R.N. Cardiac rhythm: (SR). Patient identifiers checked. Call light placed in reach. Side rails up x 1. Bed placed in lowest position. Brakes of bed on. --19:03 Hermelinda Darden R.N. ( [facility] CALLED AGAIN, STILL NO ETA, "BED SITUATION ABYSMAL"). --19:57 Chuy Morley, J[facility] Health Information Provider ( Blood collected from the patient's IV and sent to lab, labeled in presence of patient). --21:39 Yuniel Ward R.N. Cardiac rhythm: normal sinus rhythm. Oxygen administered. Neuro-vascular extremity check. Reassurance given. ( Pt still feels a bit SOB, denies CP, dizziness, labs drawn again to recheck levels, still awaiting on [facility] for bed placement. Drinking fluids and tolerating well. Will monitor). GENERAL / NEURO / PSYCH: Denies numbness. Denies pain. GI / : Denies nausea. Denies vomiting. Patient identifiers checked. Call light placed in reach. --21:43 Priti Jacobo R.N. 20:00 10/02/16. BP: 137/89. HR: 93. RR: 24. O2 saturation: 96% on nasal cannula at 2 liters/minute. Temp: 98.1 F (oral). Pain level now: 05/27. --21:43 Priti Jacobo R.N. 23:05 10/02/2016 PROTONIX (Pantoprazole Sodium) IVP 80 mg given over 4 minute(s) via site #1. Allergies verified and confirmed 5 rights. IV patency established. IV site checked: no pain, redness, or swelling. IV flushed thoroughly pre- and post-medication administration. IVP given by RN. --23:07 Jessica Reyez R.N. EKG time: (2317). EKG was performed by a tech and shown to the ED physician. ( repeat). --23:20 Brittany Roman 23:00 10/02/16. BP: 142/89. HR: 89. RR: 18. O2 saturation: 97% on nasal cannula at 2 liters/minute. Temp: 98.6 F (oral). Pain level now: 07/25. --23:29 Priti Jacobo R.N. Oxygen administered by nasal cannula at 2 liters. bulk delivery driver, pulse oximeter and NIBP monitor placed on patient; monitor alarms on. Neuro-vascular extremity check distal to injury: pulses diminished (left). Reassurance given. The patient is calm and resting quietly. Overall patient status is the same- she states feels better. GENERAL / NEURO / PSYCH: Denies numbness. Alert. Oriented X 4. GI / : Denies nausea. Denies vomiting. Call light placed in reach. Side rails up. Bed placed in lowest position. --23:29 Priti Jacobo R.N. ( Report received from JUAN M Marcos). --23:34 Yuniel Ward R.N. ( office secretary, Tushar, reports that [facility] has accepted the patient.). --23:35 Yuniel Ward R.N. 23:40 10/02/2016 Dilaudid (HYDROmorphone HCl PF) IVP 1 mg given over 30 second(s) via site #1. Allergies verified, confirmed 5 rights and sedative warning given to the patient. IV patency established. IV site checked: no pain, redness, or swelling. IV flushed thoroughly pre- and post-medication administration. IVP given by RN. --23:40 Priti Jacobo R.N. 23:40 10/02/2016 Site #1 reassessed; patent, infusing well and no signs of infection or infiltration. Line flushed with saline. Good blood return present. Converted to saline lock. --23:40 Priti Jacobo R.N. ( pt complaint of right leg pain, pulses Doppler +1-2 good cap refill noted, dilaudid given as ordered. ICU bed opened up, awaiting transfer). --23:41 Priti Jacobo R.N. 00:23 10/03/2016 Dilaudid IVP Response. ED physician notified (Pt first received incorrect dose of 0.5mg instead of 1 mg MD Galindo ulrich and fixed in computer). --00:23 Priti Jacobo R.N. 23:40 10/03/2016 Dilaudid (HYDROmorphone HCl PF) IVP 0.5 mg given over 30 second(s) via site #1. Allergies verified, confirmed 5 rights and sedative warning given to the patient. IV patency established. IV site checked: no pain, redness, or swelling. IV flushed thoroughly pre- and post-medication administration. IVP given by RN. --00:24 Priti Jacobo R.N. ( Pt given 0.5mg of dilaudid instead of 1 mg as ordered. MD Foster aware, pt comfortable with the 0.5mg dose that was originally given. Charted and corrected). --00:25 Priti Jacobo R.N. 00:29 10/03/16. BP: 151/51. HR: 82. RR: 18. O2 saturation: 98% on room air. Pain level now: 0/10. --00:30 Yuniel Ward R.N. DISPOSITION / DISCHARGE ( pt and spouse aware of transfer plans, blood products infusing on iv pump,). Patient's personal items include, pts clothing and purse taken home by spouse Magan-. --07:49 Hermelinda Darden R.N. 07:45 10/02/16. BP: 127/47. HR: 87. RR: 19. O2 saturation: 85% on nasal cannula at 3 liters/minute. O2 started via nasal cannula. ED physician notified. Additional comments: O2 increased to 3L, good pleth on monitor, will notify MD. --07:49 Hermelinda Darden R.N. Report was given to a nurse via a phone call. Report included patient's care, treatment, medications, reviewed medication reconcilliation, and condition (including any recent changes or anticipated changes). All questions were answered. Report was acknowledged. (Joselin Quinteros RN - at [facility]). --00:40 Yuniel Ward R.N. Bed obtained (bed# [id number] at [facility]). --00:41 Yuniel Ward R.N. Condition at departure: stable. Transferred to [facility]. Summary of care provided to EMS (00:58). Transported via ambulance by nurse and EMS with O2. ( [facility] with patient. Report also given to RN on transport team). --00:59 Yuniel Ward R.N. 00:57 10/03/16. BP: 151/51. HR: 92. RR: 20 (regular and unlabored). O2 saturation: 94% on nasal cannula at 1 liters/minute. Pain level now: 0/10. Additional comments: NSR on monitor. --00:59 Yuniel Ward R.N. Patient's personal items; items were transported with the patient. --00:59 Yuniel Ward R.N. Locked/Released at 10/03/2016 1:04 by Yuniel Ward R.N.
--- NOTE | 2016-10-02 09:16 | ED NURSING NOTES ---
Clinical Report - Nurses [facility] [address] [place] [address] 10/02/2016 4:32 [facility]: [id number] TRIAGE Triage time 04:47. Acuity: LEVEL 4. Chief Complaint: RIGHT LOWER EXTREMITY NUMBNESS. Location of symptoms- (weakness). LEFT LOWER EXTREMITY NUMBNESS. Location of symptoms- (weakness). Alert. JEREMI COMA SCORE: [place] Coma Scale: 15- eyes open spontaneously (4); best verbal response- oriented x 4 (5); best motor response- obeys commands (6). --04:53 Yuniel Ward R.N. 04:46 10/02/16. BP: 160/60. HR: 115. RR: 24. O2 saturation: 99%. Temp: 98.3 F. Pain level now: 02/24. --04:53 Yuniel Ward R.N. Weight: 63.5 kg stated. Height/Length: 63 inches Per Patient. BMI: 24.8. --04:47 Yuniel Ward R.N. Medications Aspirin Oral. --04:48 Yuniel Ward R.N. Allergies No Known Drug Allergy. --01:04 Yuniel Ward R.N. History Arrived by private vehicle. Historian: patient. Accompanied by family. This occurred (3 years ago). ( increased "Thursday"). SOCIAL HX: Heavy tobacco smoker (cigarette)- 1 pack per day. Occasional alcohol use. History of occasional drug use: marijuana. ( Denies SI/HI, states that she feels safe at home.). FALL RISK ASSESSMENT: Fall risk assessment completed. No fall risk identified. NUTRITIONAL RISK ASSESSMENT: The nutritional risk assessment revealed no deficiencies. FUNCTIONAL ASSESSMENT: Functional assessment: no impairments noted. LEARNING NEEDS ASSESSMENT: The learning needs assessment revealed no barriers. --04:53 Yuniel Ward R.N. PROBLEMS: no known problems. ADDITIONAL SURGERIES: Tubal Ligation. --04:48 Yuniel Ward R.N. Interventions ID band on patient. To treatment room. --04:53 Yuniel Ward R.N. PHYSICAL ASSESSMENT To room via wheelchair. GENERAL / NEURO / PSYCH: Oriented X 4. Alert. Appears in pain and anxious. Does not appear in distress. She has had intermittent weakness. She has had intermittent numbness. EXTREMITIES: No lower extremity edema. No limited ROM present or extremity erythema. No increased warmth on the extremities. SKIN: No extremity wound. Skin intact. Skin is dry. Skin is cool. --04:55 Yuniel Ward R.N. CVS: Cardiac murmur(s) present (murmur heard over jugular areas bilaterally). ( unable to manually palpate pedal pulses. lung sounds clear). --04:59 Yuniel Ward R.N. GENERAL / NEURO / PSYCH: ( Patient states that the diluadid was helpful for her leg pain). Does not appear anxious. --07:01 Yuniel Ward R.N. GENERAL / NEURO / PSYCH: ( Patient appears relaxed). --07:01 Yuniel Ward R.N. 07:05 10/02/16. BP: 155/60. HR: 96. O2 saturation: 98% on nasal cannula at 2 liters/minute. --07:05 Yuniel Ward R.N. GENERAL / NEURO / PSYCH: Oriented X 4. ( Patient resting in bed). Does not appear in pain or distress or anxious. SKIN: Skin intact. Skin is warm and dry. --00:29 Yuniel Ward R.N. NURSING PROGRESS NOTES Patient gowned. Reassurance given. Two patient identifiers checked. Call light placed in reach. Side rails up x 1. Bed placed in lowest position. Brakes of bed on. Patient ready for evaluation- chart flagged. Patient waiting for evaluation. --04:55 Yuniel Ward R.N. ( Unable to palpate or doppler pedal pulses, dr. douglass notified.). --05:27 Yuniel Ward R.N. 05:20 10/02/2016 Site #1 started via IV in the right antecubital space with an 20g angiocath. Blood drawn: rainbow set. Labeled in the presence of the patient and sent to the lab. Saline lock flushed with 10 mL saline. --05:30 Yuniel Ward R.N. 05:25 10/02/2016 Toradol IVP 30 mg given over 1 minute(s) via site #1. Allergies verified and confirmed 5 rights. IV patency established. IV site checked: no pain, redness, or swelling. IV flushed thoroughly pre- and post-medication administration. --05:30 Yuniel Ward R.N. ( Dr. Douglass with patient.). --05:32 Yuniel Ward R.N. Hemoccult test positive. video control operator check passed. (POC test reference range: negative). --05:32 Yuniel Ward R.N. ( Critical values of Hgb 4.6 and Hct 15.[address] douglass at time lab called, received and reported by JUAN M Brar.). --05:34 Yuniel Ward R.N. ( cardiology manager performing EKG). --05:37 Yuniel Ward R.N. EKG time: (0542 AM). EKG was ordered, performed by a tech and shown to the ED physician. --05:48 Junie Corado 05:43 10/02/2016 PROTONIX (Pantoprazole Sodium) IVP 80 mg given over 4 minute(s) via site #1. Allergies verified and confirmed 5 rights. IV patency established. IV site checked: no pain, redness, or swelling. IV flushed thoroughly pre- and post-medication administration. IVP given by RN (in 20ml NS). --05:49 Yuniel Ward R.N. Patient transported to radiology by stretcher with tech. --05:55 Daniella Taylor R.N. ( Patient taken to radiology with Rolan information technology auditor). --05:57 Yuniel Ward R.N. Patient returned from radiology by stretcher with tech. --06:04 Daniella Tyalor R.N. ( Pt c/o increased pain in legs. EDMD notified.). --06:04 Daniella Taylor R.N. 06:13 10/02/2016 Morphine IVP 4 mg given over 2 minute(s) via site #1. Allergies verified, confirmed 5 rights and sedative warning given to the patient and patient's family. IV patency established. IV site checked: no pain, redness, or swelling. IV flushed thoroughly pre- and post-medication administration. IVP given by RN. --06:23 Yuniel Ward R.N. BLOOD PRODUCT STARTED: consent signed, ID band checked and blood product verified to order and patient's blood band by 2 staff members. #1 unit PRBC via IV pump (75 mL/hr). See transfusion record. ( Blood started at 0615). --06:24 Yuniel Ward R.N. 06:30 10/02/16. BP: 187/57. HR: 121. O2 saturation: 100% on nasal cannula at 2 liters/minute. Temp: 98.6 F (oral). Pain level now: 02/24. --06:35 Yuniel Ward R.N. 06:33 10/02/2016 Dilaudid (HYDROmorphone HCl PF) IVP 1 mg given over 2 minute(s) via site #1. Allergies verified, confirmed 5 rights and sedative warning given to the patient and patient's family. IV patency established. IV site checked: no pain, redness, or swelling. IV flushed thoroughly pre- and post-medication administration. IVP given by RN. --06:37 Yuniel Ward R.N. <<STRICKEN ENTRY-- ( rate of blood increased to 200 ml/hr). --06:47 Yuniel Ward R.N. --END STRIKE>> Correction --06:47 Yuniel Ward R.N. ( 0630: rate of blood increased to 200 ml/hr). --06:48 Yuniel Ward R.N. 06:49 10/02/16. BP: 178/47 taken on the right arm. HR: 102. O2 saturation: 100% on nasal cannula at 2 liters/minute. Pain level now: 10/25. --06:50 Yuniel Ward R.N. 06:50 10/02/16. BP: 174/50 taken on the left arm. HR: 101. --06:50 Yuniel Ward R.N. <<STRICKEN ENTRY-- 06:50 10/02/16. BP: 51/35. Additional comments: left leg. --06:51 Yuniel Ward R.N. --END STRIKE>> Wrong Value. --06:51 Yuniel Ward R.N. 06:51 10/02/16. BP: 83/54. Additional comments: left leg. --06:51 Yuniel Ward R.N. 06:51 10/02/16. BP: 51/35. Additional comments: right leg. --06:51 Yuniel Ward R.N. <<STRICKEN ENTRY-- 06:54 10/02/16. BP: 167/100. HR: 102. RR: 18. O2 saturation: 98%. Pain level now: 09/24. --06:56 Sheriff Mccormick R.N. --END STRIKE>> Charted on wrong patient. --07:00 Sheriff Mccormick R.N. Overall patient status is the same- she states feels better. ( CT done.). --06:56 Sheriff Mccormick R.N. ( report given to JUAN M Shen). --07:06 Yuniel Ward R.N. ( assumed care of pt, doppler used to obtain pedal pulses, MD notified. pt sleeping, awakens to touch, spouse at bedside, pts color pink, oral mucosa dry, has NC 2L in place, waiting to hear of accepting facility for transport out. pt placed on moss gatherer). --07:23 Hermelinda Darden R.N. 07:20 10/02/16. BP: 150/49. HR: 94. RR: 19. O2 saturation: 99% on nasal cannula at 2 liters/minute. Temp: 99.2 F. ED physician notified. --07:23 Hermelinda Darden R.N. Patient identifiers checked. Call light placed in reach. Side rails up x 2. Bed placed in lowest position. Brakes of bed on. ( blood up infusing on iv pump at 200ml/hr). --07:24 Hermelinda Darden R.N. Reassessment after medication administered (temperature elevated during blood transfusion, notified with orders for a gram of tylenol). --07:35 Hermelinda Darden R.N. 07:39 10/02/2016 Tylenol (Acetaminophen) PO 1000 mg given. Allergies verified and confirmed 5 rights. --07:45 Hermelinda Darden R.N. 07:58 10/02/16. ( pt moved to room 13 in direct view of nurses station. pt sats now 100% on 3 L, pt a/o x 3, denies pain, in SR on monitor, 1st unit of blood products complete, facility tech to lab to get 2nd unit.). --08:10 Hermelinda Darden R.N. 08:10 10/02/16. BP: 148/56. HR: 81. RR: 15. O2 saturation: 100% on nasal cannula at 3 liters/minute. Temp: 98.4 F. Pain level now: 0. --08:11 Hermelinda Darden R.N. 08:44 10/02/16. BP: 159/59. HR: 84. RR: 16. O2 saturation: 100%. Temp: 98.4 F. Pain level now: 0. --08:46 Hermelinda Darden R.N. ( 2nd unit of blood up infusing on iv pump, started at 75ml/hr for first 15 minutes, pt in SR on monitor, resting quietly). --08:46 Hermelinda Darden R.N. 08:55 10/02/16. BP: 149/50. HR: 85. RR: 15. O2 saturation: 100% on nasal cannula at 3 liters/minute. Temp: 98.5 F. Pain level now: 0. --08:56 Hermelinda Darden R.N. ( 15 minute blood check, rate increased to 200ml/hr). --08:56 Hermelinda Darden R.N. ( 2nd unit of blood infusing as ordered on ivp- waiting call back from [facility] for transfer.). --09:48 Hermelinda Darden R.N. 09:55 10/02/16. BP: 153/56 (regular adult cuff) taken on the left arm, via an automated monitor, while lying. RN notified. HR: 81. RR: 10 (regular, slow and deep). O2 saturation: 100% on nasal cannula at 3 liters/minute. Temp: 98.7 F. Pain level now: 0/10. Additional comments: 1 hour Blood check . --09:57 Kelley Seymuor 10:30 10/02/16. BP: 161/69. HR: 84. RR: 15. O2 saturation: 100% at 3 liters/minute. Temp: 98.2 F. Pain level now: 0/10. --10:41 Hermelinda Darden R.N. ( 2nd unit of blood complete, v/s recorded, no s/sx of reaction). --10:41 Hermelinda Darden R.N. 08:41. BLOOD PRODUCT DISCONTINUED: #1 unit. No adverse reaction noted. See transfusion record. --11:16 Hermelinda Darden R.N. 08:41. Time-out completed immediately before the procedure per protocol: verified identity of patient (name, birthdate and medical record number), procedure, availability of relevant documentation, diagnostic and imaging studies and blood products, implants, devices and/or equipment, safety precautions based on patient history or medication use and consent was obtained and reviewed; verification done by care team (nurse). ([id number]) BLOOD PRODUCT STARTED: consent signed, ID band checked and blood product verified to order and patient's blood band by 2 staff members. #2 unit PRBC via IV pump (started at 75ml/hr). See transfusion record. --11:18 Hermelinda Darden R.N. 10:41. BLOOD PRODUCT DISCONTINUED: #2 unit PRBC. No adverse reaction noted. See transfusion record. --11:18 Hermelinda Darden R.N. Patient waiting for transportation and admit bed and (continuing to wait on bed at [facility] where pt was accepted. LORENA Gill called and at this time they have no available beds but are expecting dispos today.). --12:08 Hermelinda Darden R.N. 12:08 10/02/16. BP: 148/70. HR: 72. RR: 15. O2 saturation: 100% on nasal cannula at 3 liters/minute. Pain level now: 07/25. --12:09 Hermelinda Darden R.N. Cardiac rhythm: normal sinus rhythm. Patient identifiers checked. Call light placed in reach. Side rails up x 2. Bed placed in lowest position. Brakes of bed on. --12:09 Hermelinda Darden R.N. Reassessment after (no reaction from blood products. pt in poc, daughter in and out of room). She has had no adverse reaction. ( pt and family updated on delay of transport reason). --12:10 Hermelinda Darden R.N. 14:17 10/02/16. BP: 141/53. HR: 78. RR: 15. O2 saturation: 100%. Pain level now: . --14:20 Hermelinda Darden R.N. ( pt in poc, family in and out, we cont to wait for return from [facility] for transfer. pt and family aware of wait. pt in SR, denies pain at this time, pt a/o x 3, moves about on [facility] independently, call light in hand,). --14:20 Hermelinda Darden R.N. ( plan is now to wait until [address] [facility] back if room is not available will send [facility]). --15:19 Hermelinda Darden R.N. ( pt c/o leg pain returning, Dr Maradiaga took over for Dr Douglass, vo per Dr Maradiaga to repeat dilaudid 1mg iv). --15:39 Hermelinda Darden R.N. Cardiac rhythm: (SR). Patient identifiers checked. Call light placed in reach. Side rails up x 1. Bed placed in lowest position. Brakes of bed on. ( pts family brought her dinner, pt ate hamburger, water given to pt, up to bsc with sba to void.). --15:40 Hermelinda Darden R.N. 15:39 10/02/16. BP: 138/50. HR: 82. RR: 17. O2 saturation: 100% on nasal cannula at 3 liters/minute. Pain level now: 09/24. --15:40 Hermelinda Darden R.N. 15:56 10/02/16. Patient ID band checked for patient name and birthdate. Blood samples drawn from the right antecubital space with Vacutainer 22g by nurse: don cameron. --17:31 Hermelinda Darden R.N. 15:59 10/02/2016 Dilaudid (HYDROmorphone HCl PF) IVP 1 mg given. via site #1. Allergies verified, confirmed 5 rights and sedative warning given to the patient. IV patency established. IV site checked: no pain, redness, or swelling. IV flushed thoroughly pre- and post-medication administration. IVP given by RN. --16:04 Hermelinda Darden R.N. ( [facility] called by [facility], they still have no bed, house sup at [facility] to call us when available, Dr Maradiaga notified.). --17:40 Hermelinda Darden R.N. 17:40 10/02/16. BP: 136/48. HR: 77. O2 saturation: 100%. --17:40 Hermelinda Darden R.N. Patient identifiers checked. Call light placed in reach. Side rails up x 2. Bed placed in lowest position. Brakes of bed on. --17:41 Hermelinda Darden R.N. ( family updated on H/H results and that we cont to wait on [facility] for transfer. pt sleeping, equal rise/fall of chest). --18:16 Hermelinda Darden R.N. ( care released, family home, pt sleeping, equal rise/fall of chest). --19:02 Hermelinda Darden R.N. 19:02 10/02/16. BP: 147/48. HR: 80. RR: 15. O2 saturation: 98%. --19:03 Hermelinda Darden R.N. Cardiac rhythm: (SR). Patient identifiers checked. Call light placed in reach. Side rails up x 1. Bed placed in lowest position. Brakes of bed on. --19:03 Hermelinda Darden R.N. ( [facility] CALLED AGAIN, STILL NO ETA, "BED SITUATION ABYSMAL"). --19:57 Chuy Morley, JUVENCIO Solar Installation Supervisor ( Blood collected from the patient's IV and sent to lab, labeled in presence of patient). --21:39 Yuniel Ward R.N. Cardiac rhythm: normal sinus rhythm. Oxygen administered. Neuro-vascular extremity check. Reassurance given. ( Pt still feels a bit SOB, denies CP, dizziness, labs drawn again to recheck levels, still awaiting on [facility] for bed placement. Drinking fluids and tolerating well. Will monitor). GENERAL / NEURO / PSYCH: Denies numbness. Denies pain. GI / : Denies nausea. Denies vomiting. Patient identifiers checked. Call light placed in reach. --21:43 Priti Jacobo R.N. 20:00 10/02/16. BP: 137/89. HR: 93. RR: 24. O2 saturation: 96% on nasal cannula at 2 liters/minute. Temp: 98.1 F (oral). Pain level now: 05/27. --21:43 Priti Jacobo R.N. 23:05 10/02/2016 PROTONIX (Pantoprazole Sodium) IVP 80 mg given over 4 minute(s) via site #1. Allergies verified and confirmed 5 rights. IV patency established. IV site checked: no pain, redness, or swelling. IV flushed thoroughly pre- and post-medication administration. IVP given by RN. --23:07 Jessica eRyez R.N. EKG time: (2317). EKG was performed by a tech and shown to the ED physician. ( repeat). --23:20 Brittany Roman 23:00 10/02/16. BP: 142/89. HR: 89. RR: 18. O2 saturation: 97% on nasal cannula at 2 liters/minute. Temp: 98.6 F (oral). Pain level now: 07/25. --23:29 Priti Jacobo R.N. Oxygen administered by nasal cannula at 2 liters. safety lead, pulse oximeter and NIBP monitor placed on patient; monitor alarms on. Neuro-vascular extremity check distal to injury: pulses diminished (left). Reassurance given. The patient is calm and resting quietly. Overall patient status is the same- she states feels better. GENERAL / NEURO / PSYCH: Denies numbness. Alert. Oriented X 4. GI / : Denies nausea. Denies vomiting. Call light placed in reach. Side rails up. Bed placed in lowest position. --23:29 Priti Jacobo R.N. ( Report received from JUAN M Marcos). --23:34 Yuniel Ward R.N. ( loan secretary, Tushar, reports that [facility] [place] has accepted the patient.). --23:35 Yuniel Ward R.N. 23:40 10/02/2016 Dilaudid (HYDROmorphone HCl PF) IVP 1 mg given over 30 second(s) via site #1. Allergies verified, confirmed 5 rights and sedative warning given to the patient. IV patency established. IV site checked: no pain, redness, or swelling. IV flushed thoroughly pre- and post-medication administration. IVP given by RN. --23:40 Priti Jacobo R.N. 23:40 10/02/2016 Site #1 reassessed; patent, infusing well and no signs of infection or infiltration. Line flushed with saline. Good blood return present. Converted to saline lock. --23:40 Priti Jacobo R.N. ( pt complaint of right leg pain, pulses Doppler +1-2 good cap refill noted, dilaudid given as ordered. ICU bed opened up, awaiting transfer). --23:41 Priti Jacobo R.N. 00:23 10/03/2016 Dilaudid IVP Response. ED physician notified (Pt first received incorrect dose of 0.5mg instead of 1 mg MD Galnido ulrich and fixed in computer). --00:23 Priti Jacobo R.N. 23:40 10/03/2016 Dilaudid (HYDROmorphone HCl PF) IVP 0.5 mg given over 30 second(s) via site #1. Allergies verified, confirmed 5 rights and sedative warning given to the patient. IV patency established. IV site checked: no pain, redness, or swelling. IV flushed thoroughly pre- and post-medication administration. IVP given by RN. --00:24 Priti Jacobo R.N. ( Pt given 0.5mg of dilaudid instead of 1 mg as ordered. MD Foster aware, pt comfortable with the 0.5mg dose that was originally given. Charted and corrected). --00:25 Priti Jacobo R.N. 00:29 10/03/16. BP: 151/51. HR: 82. RR: 18. O2 saturation: 98% on room air. Pain level now: 0/10. --00:30 Yuniel Ward R.N. DISPOSITION / DISCHARGE ( pt and spouse aware of transfer plans, blood products infusing on iv pump,). Patient's personal items include, pts clothing and purse taken home by spouse Magan-. --07:49 Hermelinda Darden R.N. 07:45 10/02/16. BP: 127/47. HR: 87. RR: 19. O2 saturation: 85% on nasal cannula at 3 liters/minute. O2 started via nasal cannula. ED physician notified. Additional comments: O2 increased to 3L, good pleth on monitor, will notify MD. --07:49 Hermelinda Darden R.N. Report was given to a nurse via a phone call. Report included patient's care, treatment, medications, reviewed medication reconcilliation, and condition (including any recent changes or anticipated changes). All questions were answered. Report was acknowledged. (Joselin Quinteros RN - at [facility]). --00:40 Yuniel Ward R.N. Bed obtained (bed# [id number] at [facility]). --00:41 Yuniel Ward R.N. Condition at departure: stable. Transferred to [facility]. Summary of care provided to EMS (00:58). Transported via ambulance by nurse and EMS with O2. ( [facility] with patient. Report also given to RN on transport team). --00:59 Yuniel Ward R.N. 00:57 10/03/16. BP: 151/51. HR: 92. RR: 20 (regular and unlabored). O2 saturation: 94% on nasal cannula at 1 liters/minute. Pain level now: 0/10. Additional comments: NSR on monitor. --00:59 Yuniel Ward R.N. Patient's personal items; items were transported with the patient. --00:59 Yuniel Ward R.N. Locked/Released at 10/03/2016 1:04 by Yuniel Ward R.N.
--- NOTE | 2016-10-04 08:35 | ED DISCHARGE INSTRUCTIONS ---
Patient: SHEREE SANTAMARIA General Instructions [facility] VisitID: [id number] [address] [place] [address] 56y, F Registration Date/Time: 10/02/2016 Occult and minor GI bleed with melena. 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 Abnormal EKG: depressed ST segments. Severe chronic iron deficiency anemia from chronic blood loss. (Electronically signed by Rosalio Douglass Dr. 10/04/2016 8:35)
--- NOTE | 2016-10-04 08:35 | ED MAR SUMMARY ---
..... Medication Administration Record [facility] [address] [place] [address] Patient: SHREEE SANTAMARIA Visit ID: [id number] 56y, F Weight: 63.5 kg Height/Length: 63 in BMI: 24.8 ALLERGIES: No Known Drug Allergy Given 05:25 10/02/2016 Yuniel Ward R.N. Medication Administered: TORADOL [IVP], Dose: 30 mg IVP over 1 minute(s), Site: #1 right AC. Medication Ordered: Toradol IV 30 mg (NOW). Given 05:43 10/02/2016 Yuniel Ward R.N. Medication Administered: PROTONIX [IVP] (PANTOPRAZOLE SODIUM), Dose: 80 mg IVP over 4 minute(s), Site: #1 right AC. Medication Ordered: Protonix IVP 80mg 80 mg (Mix in NS 20ml over 4min). Given 06:13 10/02/2016 Yuniel Ward R.N. Medication Administered: MORPHINE [IVP], Dose: 4 mg IVP over 2 minute(s), Site: #1 right AC. Medication Ordered: Morphine IV 4 mg (HIGH ALERT MEDICATION, NOW). Given 06:33 10/02/2016 Yuniel Ward R.N. Medication Administered: DILAUDID [IVP] (HYDROMORPHONE HCL PF), Dose: 1 mg IVP over 2 minute(s), Site: #1 right AC. Medication Ordered: Dilaudid IV 1 mg (HIGH ALERT MEDICATION, NOW). Given 07:39 10/02/2016 Hermelinda Darden R.N. Medication Administered: TYLENOL [PO] (ACETAMINOPHEN), Dose: 1000 mg PO. Medication Ordered: Tylenol PO 1,000 mg (NOW). Given 15:59 10/02/2016 Hermelinda Darden R.N. Medication Administered: DILAUDID [IVP] (HYDROMORPHONE HCL PF), Dose: 1 mg IVP, Site: #1 right AC. Medication Ordered: Dilaudid IV 1 mg (HIGH ALERT MEDICATION, NOW). Given 23:05 10/02/2016 Dereje, Jessica, R.N. Medication Administered: PROTONIX [IVP] (PANTOPRAZOLE SODIUM), Dose: 80 mg IVP over 4 minute(s), Site: #1 right AC. Medication Ordered: Protonix IVP 80mg 80 mg (Mix in NS 20ml over 4min). Given 23:40 10/02/2016 Priti Jacobo R.N. Medication Administered: DILAUDID [IVP] (HYDROMORPHONE HCL PF), Dose: 1 mg IVP over 30 second(s), Site: #1. Medication Ordered: Dilaudid IV 1 mg (NOW). Given 23:40 10/03/2016 Priti Jacobo RMarsN. Medication Administered: DILAUDID [IVP] (HYDROMORPHONE HCL PF), Dose: 0.5 mg IVP over 30 second(s), Site: #1. Medication Ordered: Dilaudid IV 0.5 mg (NOW).
--- NOTE | 2016-10-04 08:35 | ED DISCHARGE INSTRUCTIONS ---
Patient: SHEREE SANTAMARIA General Instructions [facility] VisitID: [id number] [address] [place] [address] 56y, F Registration Date/Time: 10/02/2016 Occult and minor GI bleed with melena. 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 Abnormal EKG: depressed ST segments. Severe chronic iron deficiency anemia from chronic blood loss. (Electronically signed by Rosalio Douglass Dr. 10/04/2016 8:35)
--- NOTE | 2016-10-04 08:35 | ED MED RECONCILIATION SUMMARY ---
Patient: SHEREE SANTAMARIA Medication Reconciliation Report [facility] VisitID: [id number] [place] [address] 56y, F Registration Date/Time: 10/02/2016 Weight: 63.5 kg Height/Length: 63 in. BMI: 24.8 ALLERGIES: No Known Drug Allergy The patient's Home Medications are listed below: THE FOLLOWING MEDICATIONS NEED TO BE RECONCILED: Aspirin Oral The source(s) of the original Home Medication information: Not obtained. The following Medications were given to the patient in the Emergency Department: Toradol [IVP] IVP 30 mg, administered: 10/02/2016 5:25:00 AM PROTONIX [IVP] IVP 80 mg, administered: 10/02/2016 5:43:00 AM Morphine [IVP] IVP 4 mg, administered: 10/02/2016 6:13:00 AM Dilaudid [IVP] IVP 1 mg, administered: 10/02/2016 6:33:00 AM Tylenol [PO] PO 1000 mg, administered: 10/02/2016 7:39:00 AM Dilaudid [IVP] IVP 1 mg, administered: 10/02/2016 3:59:00 PM PROTONIX [IVP] IVP 80 mg, administered: 10/02/2016 11:05:00 PM Dilaudid [IVP] IVP 1 mg, administered: 10/02/2016 11:40:00 PM Dilaudid [IVP] IVP 0.5 mg, administered: 10/03/2016 11:40:00 PM The following Medications were prescribed to the patient: None.
--- NOTE | 2016-10-04 08:35 | ED MAR SUMMARY ---
..... Medication Administration Record [facility] [address] [place] [address] Patient: SHEREE SANTAMARIA Visit ID: [id number] 56y, F Weight: 63.5 kg Height/Length: 63 in BMI: 24.8 ALLERGIES: No Known Drug Allergy Given 05:25 10/02/2016 Yuniel Ward R.N. Medication Administered: TORADOL [IVP], Dose: 30 mg IVP over 1 minute(s), Site: #1 right AC. Medication Ordered: Toradol IV 30 mg (NOW). Given 05:43 10/02/2016 Yuniel Ward R.N. Medication Administered: PROTONIX [IVP] (PANTOPRAZOLE SODIUM), Dose: 80 mg IVP over 4 minute(s), Site: #1 right AC. Medication Ordered: Protonix IVP 80mg 80 mg (Mix in NS 20ml over 4min). Given 06:13 10/02/2016 Yuniel Ward R.N. Medication Administered: MORPHINE [IVP], Dose: 4 mg IVP over 2 minute(s), Site: #1 right AC. Medication Ordered: Morphine IV 4 mg (HIGH ALERT MEDICATION, NOW). Given 06:33 10/02/2016 Yunile Ward R.N. Medication Administered: DILAUDID [IVP] (HYDROMORPHONE HCL PF), Dose: 1 mg IVP over 2 minute(s), Site: #1 right AC. Medication Ordered: Dilaudid IV 1 mg (HIGH ALERT MEDICATION, NOW). Given 07:39 10/02/2016 Hermelinda Darden R.N. Medication Administered: TYLENOL [PO] (ACETAMINOPHEN), Dose: 1000 mg PO. Medication Ordered: Tylenol PO 1,000 mg (NOW). Given 15:59 10/02/2016 Hermelinda Darden R.N. Medication Administered: DILAUDID [IVP] (HYDROMORPHONE HCL PF), Dose: 1 mg IVP, Site: #1 right AC. Medication Ordered: Dilaudid IV 1 mg (HIGH ALERT MEDICATION, NOW). Given 23:05 10/02/2016 Dereje, Jessica, R.N. Medication Administered: PROTONIX [IVP] (PANTOPRAZOLE SODIUM), Dose: 80 mg IVP over 4 minute(s), Site: #1 right AC. Medication Ordered: Protonix IVP 80mg 80 mg (Mix in NS 20ml over 4min). Given 23:40 10/02/2016 Priti Jacobo R.N. Medication Administered: DILAUDID [IVP] (HYDROMORPHONE HCL PF), Dose: 1 mg IVP over 30 second(s), Site: #1. Medication Ordered: Dilaudid IV 1 mg (NOW). Given 23:40 10/03/2016 Priti Jacobo RMarsN. Medication Administered: DILAUDID [IVP] (HYDROMORPHONE HCL PF), Dose: 0.5 mg IVP over 30 second(s), Site: #1. Medication Ordered: Dilaudid IV 0.5 mg (NOW).
--- NOTE | 2016-10-04 08:35 | ED MED RECONCILIATION SUMMARY ---
Patient: SHEREE SANTAMARIA Medication Reconciliation Report [facility] VisitID: [id number] [place] [address] 56y, F Registration Date/Time: 10/02/2016 Weight: 63.5 kg Height/Length: 63 in. BMI: 24.8 ALLERGIES: No Known Drug Allergy The patient's Home Medications are listed below: THE FOLLOWING MEDICATIONS NEED TO BE RECONCILED: Aspirin Oral The source(s) of the original Home Medication information: Not obtained. The following Medications were given to the patient in the Emergency Department: Toradol [IVP] IVP 30 mg, administered: 10/02/2016 5:25:00 AM PROTONIX [IVP] IVP 80 mg, administered: 10/02/2016 5:43:00 AM Morphine [IVP] IVP 4 mg, administered: 10/02/2016 6:13:00 AM Dilaudid [IVP] IVP 1 mg, administered: 10/02/2016 6:33:00 AM Tylenol [PO] PO 1000 mg, administered: 10/02/2016 7:39:00 AM Dilaudid [IVP] IVP 1 mg, administered: 10/02/2016 3:59:00 PM PROTONIX [IVP] IVP 80 mg, administered: 10/02/2016 11:05:00 PM Dilaudid [IVP] IVP 1 mg, administered: 10/02/2016 11:40:00 PM Dilaudid [IVP] IVP 0.5 mg, administered: 10/03/2016 11:40:00 PM The following Medications were prescribed to the patient: None.
== END 2016-10-03 00:59 | disposition short-term general hospital (02) ==
LOC: ED SRH 04:28
DX: I70.223 Atherosclerosis of native arteries of extremities with rest pain, bilateral legs (principal); R94.31 Abnormal electrocardiogram [ECG] [EKG]; K92.2 Gastrointestinal hemorrhage, unspecified; K92.1 Melena; D50.0 Iron deficiency anemia secondary to blood loss (chronic); Z79.82 Long term (current) use of aspirin; F17.210 Nicotine dependence, cigarettes, uncomplicated